=== PATIENT | female | born 1990 | race Caucasian/White ===

== ENCOUNTER 2018-03-03 22:05 | Emergency (ER) | payer OTHER ==
[~2018-03-03] VITALS: Ht 165.1 cm; Wt 90.7 kg
[~2018-03-03 22:05] MED LIST: CLOMIPHENE CITR50 MG PO; LEVOTHYROXINE100 MCG PO; NORCO 5-325 TA1 EACH PO; PRENACARE TABL1 EACH PO
[2018-03-03] MEDS ORDERED: LEVOTHYROXINE125 MCG PO (22:45)
[2018-03-03] MEDS ORDERED: NORLYDA0.35 MG PO (22:46)
[2018-03-03] MEDS ORDERED: NORCO 5-325 TA1 EACH PO (22:46)
== END 2018-03-03 23:40 | disposition home or self-care (01) ==
LOC: ED 22:05
DX: S93.402A Sprain of unspecified ligament of left ankle, initial encounter (principal); E03.9 Hypothyroidism, unspecified; Z79.899 Other long term (current) drug therapy; X50.1XXA Overexertion from prolonged static or awkward postures, initial encounter; Y93.02 Activity, running
CPT/HCPCS: 73610; 99283

== ENCOUNTER 2018-08-28 07:00 | Day surgery (SDC) | payer OTHER ==
[~2018-08-28] VITALS: Ht 165.1 cm; Wt 86.2 kg
[~2018-08-28 07:00] MED LIST changes: +LEVOTHYROXINE125 MCG PO; +NORLYDA0.35 MG PO; +TIZANIDINE HCL4 MG PO; +WELLBUTRIN XL300 MG PO
--- NOTE | 2018-08-28 11:01 | NUR ---
08/28/18 1101 Keila Teran 1036 - PT ARRIVES TO PACU FROM OR ON 10 L VIA MASK WITH JAW THRUST BY NAMED ACCOUNT EXECUTIVE. O2 SATS 97%. PT RESPONDS TO VERBAL STIMULUS AND ABLE TO VERBALIZE NO PAIN/NAUSEA. PT TITRATED TO 6 L VIA MASK. O2 SATS 97%. RESP EVEN, UNLABORED. \ 1042- PT COUGHING AND DEEP BREATHING. PRODUCTIVE COUGH WITH BLOOD TINGED SPUTUM NOTED. PT TITRATED TO RA. O2 SATS ABOVE 90%. RESP EVEN UNLABORED. PT REPORTS FEELING HEAVINESS IN CHEST BUT IS ABLE TO TAKE DEEP BREATHS. SMALL SHADOWING ON BANDAGES AT UMBILICAL SITE AND RUQ SITE. PT REPORTS 3/10 PAIN BUT DENIES NEED FOR PAIN MEDS. NO NAUSEA. 1100- YAMILET ALBERTS AT BEDSIDE. PT ABLE TO SIP WATER AND TOLERATE. CONTINUES TO RESPOND TO VERBAL STIMULUS AND RESPONDS APPROPRIATELY.
--- NOTE | 2018-08-28 14:32 | NUR ---
1130 PT RETURNED FROM PACU, DROWSY. PT ABLE TO WALK AND TALK WITH STAFF,BUT FALLS BACK TO SLEEP. VITALS STABLE. PT RATES PAIN 4-5/10. DISCUSSED OPTIONS REGARDING PAIN MEDICATION, IV VS PO. PT OFFERED CRACKERS, TOLERATING WELL. AT BEDSIDE. 1150 RETURNED TO CHECK ON PT. PT RATES PAIN 5/10, DISCUSSED TAKING PO PAIN MEDICATION. PT DROWSY, BEGINS TO CRY. DISCUSSED PAIN FURTHER, PT WISHES TO REST FOR NOW AND TRY PO MEDICATION LATER. WATER REFILLED. NO FURTHER NEEDS, PT DOING BETTER AND RESTING. CALL LIGHT IN REACH.
--- NOTE | 2018-08-28 14:38 | NUR ---
1230 IN TO CHECK ON PT, PT APPEARS MORE AWAKE AND IN BETTER SPIRITS. PT RATES PAIN 5/10, MEDICATION GIVEN. WATER, CRACKERS AND JUICE GIVEN, DENIES NAUSEA. DISCUSSED DISCHARGE CRITERIA WITH PT. ADVISED TO CALL IF NEEDIG TO USE THE RESTROOM. PT UNDERSTANDS. NO FURTHER NEEDS AT THIS TIME, CALL LIGHT IN REACH. AT BEDSIDE.
--- NOTE | 2018-08-28 14:40 | NUR ---
1320 IN TO CHECK ON PT, PT STATES SHE HAS BEEN UP TO RESTROOM. TOLERATED WELL, DENIES DIZZINESS OR NAUSEA. PT PARTIALLY DRESSED WITH ASSIST FROM . PT RATES PAIN 3/10 AFTER MEDICATION. DISCUSSED DISCHARGE CRITERIA, PT AND AGREE TO BE READY FOR DISCHARGE. IV DC'D. DISCHARGE INSTRUCTIONS GIVEN. DISCUSSED HOME PAIN MEDICATION WITH PT AND . NO FURTHER QUESTIONS AT THIS TIME. PT WHEELED OUT TO CAR, GUMARO WAITING.
--- NOTE | 2018-08-29 08:39 | OR ---
[facility] [address], [place] [address] Signed DATE OF OPERATION: 08/28/2018 SURGEON: Amuari Govea MD PREOPERATIVE DIAGNOSIS: Chronic cholecystitis with biliary colic. POSTOPERATIVE DIAGNOSES: 1. Chronic cholecystitis with biliary colic. 2. Cholesterolosis. PROCEDURE: Laparoscopic cholecystectomy with intraoperative cholangiogram. ESTIMATED BLOOD LOSS: None. FINDINGS: The intraoperative cholangiogram was unremarkable. She did have a moderately significant cholesterolosis. INDICATIONS: Torin is a 28-year-old female who has been having significant belt like epigastric abdominal pain over the last 6-7 months. It is now coming every day. She said it is worse with meals and it has been quite miserable. She had been to her primary care provider. An ultrasound of gallbladder was unremarkable. Her HIDA scan showed an absence of the gallbladder contraction and injection of the CCK reproduced her symptoms. Consequently, she was asked to see me as a general surgeon. In the office, I gave Torin a [employer] brochure on the gallbladder. She understands the location of function of the gallbladder. She understands laparoscopic versus open cholecystectomy. We did review the expected intraop and postop course. She understands the risks including, but not limited to bleeding, infection, scarring, change in contour of the skin, damage to bowel, damage to main bile duct, incisional hernias and other unforeseen comorbidities. She had expressed understanding and wished to proceed. PROCEDURE NOTE: I met with Torin and her in our preop area. After this, she was taken in the operating room and placed in the supine position under general endotracheal tube anesthesia. She was given preoperative antibiotics along with subcutaneous heparin. SCDs were utilized. She was then prepped and draped in usual sterile fashion. All Electronically Signed By: AMAURI GOVEA MD 08/29/18 0839 PATIENT NAME: TORIN TORO OPERATIVE REPORT DATE OF : 86 REPORT #: [id number] PHYSICIAN: AMAURI GOVEA MD PCP: CAROLINA RAMSEY REPORT IS CONFIDENTIAL AND NOT TO BE RELEASED WITHOUT AUTHORIZATION [facility] [address], [place] [address] Signed trocars were placed in usual positions under direct visualization of camera without difficulty. The gallbladder was grasped and elevated in the right upper quadrant. Pictures were taken throughout for photodocumentation. The triangle of Calot was dissected free and we placed two clips on the cystic artery and it was divided. The intraoperative cholangiocatheter was inserted into the cystic duct. The intraoperative cholangiogram was performed without difficulty. The cystic duct stump was secured with a PDS Endoloop along with 2 clips to won its location. The gallbladder was then removed from the gallbladder fossa with the help of the cautery and placed into an EndoCatch bag. The right upper quadrant was irrigated and suctioned out until clear. We used our laparoscopic suturing device to pass 0 Vicryl suture on either side of the fascia of the subxiphoid trocar site. This was tied down to close this fascia primarily. After this, all the gas was allowed to escape and we closed the infraumbilical trocar site with interrupted [id number] and simple 0 Vicryl sutures. Local anesthetic was injected in all trocar sites. Each trocar site was irrigated and suctioned out until clear. The skin and dermis of each trocar site were closed with interrupted 3-0 subcuticular Monocryl sutures. Dry gauze and tape were applied all incisions. Our circulating nurse opened the gallbladder on the back table and she clearly had a moderately significant cholesterolosis. After this, Torin was awakened from anesthesia, extubated in the OR, and taken to recovery room in stable condition. Amauri Govea MD ALB/MODL /[id number] cc: TIP Martin MD Copies: CAROLINA RAMSEY ANDREW L MD ~ Electronically Signed By: AMAURI GOVEA MD 08/29/18 0839 PATIENT NAME: TORIN TORO OPERATIVE REPORT DATE OF : 86 REPORT #: [id number] PHYSICIAN: AMAURI GOVEA MD PCP: CAROLINA RAMSEY REPORT IS CONFIDENTIAL AND NOT TO BE RELEASED WITHOUT AUTHORIZATION
== END 2018-08-28 13:50 | disposition home or self-care (01) ==
LOC: DS 07:00
PROVIDERS: Colon & Rectal Surgery
PROC: BF13YZZ Fluoroscopy of Gallbladder and Bile Ducts using Other Contrast (ICD-10-PCS; 2018-08-28)
PROC: 0FT44ZZ Resection of Gallbladder, Percutaneous Endoscopic Approach (ICD-10-PCS; principal; 2018-08-28 08:45)
DX: K81.1 Chronic cholecystitis (principal); K58.9 Irritable bowel syndrome, unspecified; E55.9 Vitamin D deficiency, unspecified; E03.9 Hypothyroidism, unspecified; M79.7 Fibromyalgia; F32.9 Major depressive disorder, single episode, unspecified; F41.0 Panic disorder [episodic paroxysmal anxiety]; R10.9 Unspecified abdominal pain; G89.29 Other chronic pain; K21.9 Gastro-esophageal reflux disease without esophagitis; R51 Headache; Z79.899 Other long term (current) drug therapy
CPT/HCPCS: 00790; 74300; J0330; J0690; J1100; J1644; J1885; J2250; J2405; J2704; J2765; J3010; J7120; Q9967

== ENCOUNTER 2019-11-02 18:18 | Observation (INO) | payer OTHER ==
[~2019-11-02] VITALS: Ht 165.1 cm; Wt 93.0 kg
[2019-11-02] MEDS ORDERED: WELLBUTRIN SR150 MG PO (21:52)
[2019-11-02] MEDS ORDERED: PRENATAL VITAM1 EACH PO (21:52)
[2019-11-02] MEDS ORDERED: LEVOTHYROXINE150 MCG PO (21:53)
[2019-11-02] MEDS ORDERED: FISH OIL 1,0001 EAC2 NG (21:54)
[2019-11-02] MEDS ORDERED: MAGNESIUM100 MG PO (21:55)
[2019-11-02] MEDS ORDERED: ALLEGRA ALLERGY60 MG PO (21:55)
[2019-11-02] MEDS ORDERED: PROBIOTIC1 EAC1 PO (21:56)
[2019-11-02] MEDS ORDERED: FLONASE ALLERG9.9 ML NAS (21:56)
[2019-11-02] MEDS ORDERED: UNISOM25 MG PO (21:58)
--- NOTE | 2019-11-03 14:24 | PR ---
[facility] [address] [facility] [place], [place] [address] Signed AP Progress Notes Datetime Report Generated by CPN: 11/03/2019 14:24 Chief Complaint: Low lying placenta, vaginal bleeding PHYSICAL EXAM: [id number] General: Normal HEENT: Normal Neurological: Normal Thyroid: Normal Cardiovascular: Normal Breast: Not Done Back: Normal Abdomen: Abnormal Geniturinry Exam: Not Done Extremities: Normal VITAL SIGNS: [id number] Vital Signs: Reviewed; Within Normal Limits VS Notable Details: moderate tachycardia (near baseline per prior inpt records) EXAM: [id number] Contraction Comments: irritability MEMBRANES: [id number] Pooling: Negative Membranes: Intact Fetus A: [id number] FHR Baseline: 135 Variability: Moderate 6-25bpm Accelerations: 15X15 Deceleration: None FHR Category: Category I Fetus A Comments: No contractions Fetus B: [id number] PROGRESS NOTES: [id number] Plan: Pt doing well. No additional bleeding since admission. No contractions or other concerns. Plan discharge home later this evening. Recommended modified bed risk and strict pelvic rest. F/U Dr. Layne next week. Signing Physician: Paul Rosa DO Copies: *Electronically Signed* 11/03/19 1424 PAUL ROSA DO PATIENT NAME: TORIN TORO PROGRESS NOTE DATE OF : 86 PHYSICIAN: PAUL ROSA DO RPT #: [id number] REPORT IS CONFIDENTIAL AND NOT TO BE RELEASED WITHOUT AUTHORIZATION [facility] [address] [place] [address] [place], [place] [address] Signed ~ *Electronically Signed* 11/03/19 1424 PAUL ROSA DO PATIENT NAME: TORIN TORO PROGRESS NOTE DATE OF : 86 PHYSICIAN: PAUL ROSA DO RPT #: [id number] REPORT IS CONFIDENTIAL AND NOT TO BE RELEASED WITHOUT AUTHORIZATION
== END 2019-11-03 21:00 | disposition home or self-care (01) ==
LOC: FBCO 18:18 → FBC 18:48 → FBCO 19:15 → FBC 19:15
PROVIDERS: ADMIT Obstetrics & Gynecology
DX: O44.53 Low lying placenta with hemorrhage, third trimester (principal); Z3A.28 28 weeks gestation of pregnancy
CPT/HCPCS: 85025; 85384; 86850; 86900; 86901; 99213; G0378; J7121

== ENCOUNTER 2022-01-12 09:41 | Emergency (ER) | payer OTHER ==
[~2022-01-12] VITALS: Ht 165.1 cm; Wt 90.7 kg
[~2022-01-12 09:41] MED LIST changes: +ALLEGRA ALLERGY60 MG PO; +FISH OIL 1,0001 EAC2 NG; +FLONASE ALLERG9.9 ML NAS; +LEVOTHYROXINE150 MCG PO; +MAGNESIUM100 MG PO; +PRENATAL VITAM1 EACH PO; +PROBIOTIC1 EAC1 PO; +UNISOM25 MG PO; +WELLBUTRIN SR150 MG PO
[2022-01-12] MEDS ORDERED: ARMOUR THYROID90 MG PO (10:08)
[2022-01-12] MEDS ORDERED: BUPROPION HCL100 M1 PO (10:08)
[2022-01-12] MEDS ORDERED: COLESTIPOL HCL1 GM PO (10:08)
[2022-01-12] MEDS ORDERED: HYDROCODON-ACE1 EA10 PO (13:00)
== END 2022-01-12 13:16 | disposition home or self-care (01) ==
LOC: ED 09:41
DX: O99.891 Other specified diseases and conditions complicating pregnancy (principal); R07.89 Other chest pain; O99.282 Endocrine, nutritional and metabolic diseases complicating pregnancy, second trimester; E03.9 Hypothyroidism, unspecified; Z88.5 Allergy status to narcotic agent; Z79.899 Other long term (current) drug therapy; Z3A.21 21 weeks gestation of pregnancy
CPT/HCPCS: 81001; 94640; 99284; A9270

== ENCOUNTER 2023-01-22 16:37 | Emergency (ER) | payer OTHER ==
[~2023-01-22] VITALS: Ht 165.1 cm; Wt 95.2 kg
[~2023-01-22 16:37] MED LIST changes: +ARMOUR THYROID90 MG PO; +BUPROPION HCL100 M1 PO; +COLESTIPOL HCL1 GM PO; +HYDROCODON-ACE1 EA10 PO
[2023-01-22 18:58] VITALS: BP 120/82
== END 2023-01-22 18:58 | disposition home or self-care (01) ==
LOC: ED 16:37
DX: N93.8 Other specified abnormal uterine and vaginal bleeding (principal); Z88.8 Allergy status to other drugs, medicaments and biological substances; Z79.899 Other long term (current) drug therapy
CPT/HCPCS: 36415; 84703; 85025

== ENCOUNTER 2024-08-02 06:28 | Emergency (ER) | payer OTHER ==
[~2024-08-02] VITALS: Ht 165.1 cm; Wt 82.0 kg
[2024-08-02 06:49] LABS: BILIRUBIN, URINE POSITIVE (negative); BLOOD/HGB, URINE LARGE (Negative); KETONE, URINE NEGATIVE (Negative); LEUK ESTERASE, URINE LARGE (negative); NITRITE, URINE POSITIVE (negative)
[2024-08-02 07:11] LABS: BACTERIA, URINE RARE /hpf (negative); CASTS, URINE NONE SEEN \\lpf; CRYSTALS, URINE NONE SEEN (0-1+); EPITHELIAL CELLS, URINE 0 /lpf (0-1+); RED BLOOD CELLS, URINE >50 /hpf (0-5)
[2024-08-02 07:12] LABS: COLLECTION TYPE, URINE CLEAN CATCH; REFLEX CULTURE, URINE Yes (No)
[2024-08-02] MEDS ORDERED: CEPHALEXIN MONOHYDRATE 500 MG CAP PO ONE (07:15)
[2024-08-02] MEDS ORDERED: PHENAZOPYRIDINE HCL 95 MG TAB PO ONE ×2 (07:15→07:30)
[2024-08-02] MEDS ORDERED: CEPHALEXIN500 MG PO (07:22)
[2024-08-02] MEDS ORDERED: PHENAZOPYRIDINE HCL 100 MG TAB PO ONE (07:30)
[2024-08-02 08:00] VITALS: BP 118/77
== END 2024-08-02 08:01 | disposition home or self-care (01) ==
LOC: ED 06:28
PROVIDERS: Internal Medicine
DX: N39.0 Urinary tract infection, site not specified (principal); E03.9 Hypothyroidism, unspecified; Z88.5 Allergy status to narcotic agent; Z79.890 Hormone replacement therapy; Z79.899 Other long term (current) drug therapy
CPT/HCPCS: 81001; 84703; 87088; 87186; 99283; A9270

== ENCOUNTER 2025-02-04 11:31 | Emergency (ER) | payer OTHER ==
[~2025-02-04] VITALS: Ht 165.1 cm; Wt 92.5 kg
[~2025-02-04 11:31] MED LIST changes: +CEPHALEXIN500 MG PO
[2025-02-04 11:35] VITALS: BP 100/68
[2025-02-04 11:52] LABS: BASOPHILS 0.8 % (0.1-1.2); EOSINOPHILS 6.9 % (0.7-5.8); HEMATOCRIT 42.6 % (34.1-44.9); HEMOGLOBIN 13.6 g/dL (11.2-15.7); LYMPHOCYTES 41.8 % (19.3-51.7); MCH 28.4 PG (25.6-32.2); MCHC 31.9 g/dL (32.2-35.5); MCV 88.9 fL (79.4-94.8); MONOCYTES 5.7 % (4.7-12.5); NEUTROPHILS 44.6 % (34.0-71.1); PLATELET COUNT 240 K/uL (182-369); RBC 4.79 M/uL (3.93-5.22)
[2025-02-04 12:19] LABS: ALBUMIN 3.8 g/dL (3.4-5.0); ALBUMIN/GLOBULIN RATIO 1.31 (1.1-2.4); ANION GAP 12.7 (7-21); BILIRUBIN, TOTAL 0.6 mg/dL (0.2-1.0); BUN/CREATININE RATIO 17.07 (6.0-28.6); CALCIUM 8.3 mg/dL (8.5-10.1); CREATININE, SERUM 0.82 mg/dL (0.55-1.02); POTASSIUM 3.7 mmol/L (3.5-5.1); PROTEIN, TOTAL 6.7 g/dL (6.4-8.2); TSH, 3RD GENERATION 8.531 uIU/mL (0.358-3.740)
[2025-02-04] MEDS ORDERED: ondansetron HCL 4 MG/2 ML VIAL IV ONE (12:30)
[2025-02-04] MEDS ORDERED: HYDROCODONE/ACETA 5/325 TAB PO ONE (13:00)
[2025-02-04] MEDS ORDERED: HYDROCODON-ACE1 EA10 PO (13:07)
[2025-02-04] MEDS ORDERED: ONDANSETRON ODT4 MG PO (13:07)
[2025-02-04] MEDS ORDERED: ONDANSETRON 4 MG TAB ODT SL ONE (14:15)
--- NOTE | 2025-02-04 21:39 | EKG ---
[facility] [address] [facility] [place], [place] [address] Signed Normal sinus rhythm Normal ECG No previous ECGs available Confirmed by Digna Napoles MD () on 02/04/2025 9:38:42 PM Electronically Signed By: DIGNA NAPOLES MD 02/04/25 2139 PATIENT NAME: TORIN TORO Electrocardiogram DATE OF : 86 PHYSICIAN: DIGNA NAPOLES MD REPORT #: [id number] REPORT IS CONFIDENTIAL AND NOT TO BE RELEASED WITHOUT AUTHORIZATION
== END 2025-02-04 14:18 | disposition home or self-care (01) ==
LOC: ED 11:31
PROVIDERS: Emergency Medicine
DX: R55 Syncope and collapse (principal); S00.11XA Contusion of right eyelid and periocular area, initial encounter; Z79.2 Long term (current) use of antibiotics; Z88.5 Allergy status to narcotic agent; W18.30XA Fall on same level, unspecified, initial encounter
CPT/HCPCS: 36415; 51702; 70450; 72125; 80053; 84443; 84703; 85025; 93005; 93010; 99284-25; A9270; J2405